=== PATIENT | male | born 1940 | race Caucasian/White ===

== ENCOUNTER 2016-06-09 05:03 | Emergency (ER) | payer MEDICARE, OTHER ==
[2016-06-09] MEDS ORDERED: DIPHENHYDRAMINE HCL 50 MG/1 ML VIAL ONE (05:36)
[2016-06-09] MEDS ORDERED: MORPHINE SULFATE 4 MG/ML SYRINGE ONE (05:36)
[2016-06-09] MEDS ORDERED: ONDANSETRON 4 MG/2ML 2 ML VIAL ONE (05:36)
[2016-06-09] MEDS ORDERED: SODIUM CHLORIDE 0.9% 500 ML ONE (05:36)
[2016-06-09 05:41] LABS: ABSOLUTE NEUTROPHIL COUNT 6.3 K/mm3 (1.8-7.7); BASO # 0.1 K/mm3 (0.0-0.2); BASO % 0.7 % (0.2-1.0); EOS # 0.1 (0.0-0.5); HEMATOCRIT 41.5 % (32.0-52.0); HEMOGLOBIN 13.3 gm/l (14.0-18.0); IMM NEUT% 0.3 % (0-1); LYMPH # 1.7 (1.0-4.8); LYMPH % 19.9 % (15-45); MEAN CELL VOLUME 93.5 fl (80.0-94.0); MEAN PLATELET VOLUME 9.8 fl (7.4-10.4); MONO # 0.6 (0.0-0.8); MONO % 6.6 % (4-12); NEUT % 71.5 % (43-75); PLATELET COUNT 256 K/mm3 (130-400); RED CELL DISTRIBUTION WIDTH 12.5 % (11.5-14.5)
[2016-06-09 05:53] LABS: ALB/GLOB RATIO 1.4 (>1.0); ALBUMIN 4.4 gm/dL (3.5-5.7); CALCIUM 9.2 mg/dL (8.6-10.3)
[2016-06-09] MEDS ORDERED: KETOROLAC TROMETHAMINE 15 MG/ML VIAL ONE (05:58)
[2016-06-09 06:00] LABS: URINE BILIRUBIN NEGATIVE (NEGATIVE); URINE BLOOD 4+ (NEGATIVE); URINE GLUCOSE (UA) NEGATIVE (NEGATIVE); URINE LEUKOCYTE ESTERASE NEGATIVE (NEGATIVE); URINE NITRITE NEGATIVE (NEGATIVE); URINE PROTEIN 1+ (NEGATIVE); URINE UROBILINOGEN NORMAL (0-1 mg/dl)
[2016-06-09 06:01] LABS: URINE APPEARANCE SL CLOUDY; URINE COLOR YELLOW
[2016-06-09 06:08] LABS: URINE WBC 0-2 /hpf
[2016-06-09 06:10] LABS: URINE BACTERIA TRACE
--- NOTE | 2016-06-09 09:12 | CT ---
CT ABDOMEN AND PELVIS WITHOUT CONTRAST HISTORY: Epigastric pain and nausea. TECHNIQUE: No intravenous contrast administered; contiguous axial images were acquired from the lung bases to the ischial tuberosities. Oral contrast was not administered. COMPARISON:None. FINDINGS: LUNG BASES: No gross airspace consolidation or pleural effusion. Minor lower lobe bronchial wall thickening. LIVER: Diffuse fatty infiltration, no focal mass effect. SPLEEN: No focal mass effect. PANCREAS: No focal mass effect. ADRENAL GLANDS: No mass effect. KIDNEYS: Asymmetric left perirenal stranding with moderate prominence of the left renal calculus and left ureter, seen to the distal ureter where a 3 mm calculus is identified. No residual renal calculi noted. GALLBLADDER: Evidence of cholelithiasis. BOWEL: Moderate fecal loading. Limited assessment of the distal colon due to decompression. No abnormal small bowel dilatation. Colonic diverticulosis without diverticulitis. APPENDIX: Normal gas-filled appendix. PELVIC ORGANS: No gross mass effect. FREE FLUID: No gross free fluid identified. ABDOMINOPELVIC LYMPH NODES: No abnormally enlarged lymph nodes identified. ABDOMINAL AORTA: Moderate atherosclerotic calcifications without aneurysmal dilatation OSSEOUS STRUCTURES: Lower lumbar disc degeneration with multilevel canal stenosis at the L2-3 through L4-5 levels, moderate to severe degree. IMPRESSION: 1. Obstructive 3 mm calculus of the left distal ureter, no residual renal calculi identified. 2. Cholelithiasis. 3. Aortic atherosclerotic disease. 4. Fatty infiltration of the liver. 5. Lumbar spondylosis with multilevel spinal stenosis. Preliminary report relayed to the Emergency Medicine medical service by Dr. Gurrola on 06/01/2016 at 0601 hours.
== END 2016-06-09 07:00 | disposition home or self-care (01) ==
LOC: ED 05:03
DX: N20.1 Calculus of ureter (principal); Z79.899 Other long term (current) drug therapy
CPT/HCPCS: 83690; 85025; 87086; 80053; 84484; 81001; 74176; 96375 ×3; 99284 ×2; 96374; 93005; J1200; J2270; J1885; J2405; J7040